=== PATIENT | female | born 1985 | race Caucasian/White ===

== ENCOUNTER 2018-07-08 22:05 | Emergency (ER) | payer MEDICAID, OTHER ==
[~2018-07-08] VITALS: Ht 165.1 cm; Wt 45.0 kg
[~2018-07-08 22:05] MED LIST: ALBU6.7H INH; ALBU8HFA PO; CLON-529 PO; CLON0.1T20 PO; DIPH25CA83 PO; FAMO-128 PO; GABA-532 PO; LOPE-144 PO; LOPE-155 PO; LOPE2TAB25 PO; ONDA4TAB12 PO; ONDA4TAB6 PO
[2018-07-08 22:17] VITALS: BP 154/93
[2018-07-08] MEDS ORDERED: CLIN300C54 PO (22:36)
== END 2018-07-08 22:43 | disposition home or self-care (01) ==
LOC: ER 22:06
DX: L73.9 Follicular disorder, unspecified (principal); F11.90 Opioid use, unspecified, uncomplicated; F10.20 Alcohol dependence, uncomplicated; Z86.19 Personal history of other infectious and parasitic diseases; Z56.0 Unemployment, unspecified; Z88.2 Allergy status to sulfonamides; Z79.2 Long term (current) use of antibiotics; Z79.899 Other long term (current) drug therapy; Y90.9 Presence of alcohol in blood, level not specified
CPT/HCPCS: 99283

== ENCOUNTER 2018-09-30 14:15 | Emergency (ER) | payer MEDICAID ==
[~2018-09-30] VITALS: Ht 165.1 cm; Wt 56.8 kg
[2018-09-30 14:24] VITALS: BP 105/67
[2018-09-30] MEDS ORDERED: LIDOcaine 1% 30ml preserv. free vial SQ STA (15:07)
[2018-09-30] MEDS ORDERED: TETanus/Pertussis (Acell)/Diphther VAC/PF (Tdap-Adult) 0.5ml syringe IMVAC ONE (15:10)
[2018-09-30] MEDS ORDERED: CLIN150C2 PO (15:24)
== END 2018-09-30 15:40 | disposition home or self-care (01) ==
LOC: ER 14:15
DX: L02.413 Cutaneous abscess of right upper limb (principal); F32.9 Major depressive disorder, single episode, unspecified; F11.10 Opioid abuse, uncomplicated; Z88.2 Allergy status to sulfonamides; Z79.899 Other long term (current) drug therapy; Z56.0 Unemployment, unspecified
CPT/HCPCS: 10060; 90471; 90715; 99284

== ENCOUNTER 2018-10-29 13:17 | Emergency (ER) | payer MEDICAID ==
[~2018-10-29] VITALS: Ht 165.1 cm; Wt 56.8 kg
[~2018-10-29 13:17] MED LIST changes: +CLIN150C2 PO
[2018-10-29 13:26] VITALS: BP 102/58
[2018-10-29] MEDS ORDERED: famotidine 10mg tablet PO STA (13:56)
[2018-10-29] MEDS ORDERED: ondansetron 4mg rapidly disintigrating tab PO ONE (14:00)
[2018-10-29] MEDS ORDERED: loperamide 2mg capsule PO ONE (14:00)
[2018-10-29] MEDS ORDERED: pantoprazole 40mg Tablet.DR PO SCH (14:25)
[2018-10-29] MEDS ORDERED: famotidine 20mg tablet PO ONE (14:55)
[2018-10-29] MEDS ORDERED: LOPE-155 PO (15:07)
[2018-10-29] MEDS ORDERED: ONDA4TAB6 PO (15:07)
[2018-10-29] MEDS ORDERED: PANT20TA3 PO (15:07)
== END 2018-10-29 15:31 | disposition home or self-care (01) ==
LOC: ER 13:18
DX: K52.9 Noninfective gastroenteritis and colitis, unspecified (principal); F11.10 Opioid abuse, uncomplicated; F32.9 Major depressive disorder, single episode, unspecified; Z88.2 Allergy status to sulfonamides; Z79.899 Other long term (current) drug therapy; Z56.0 Unemployment, unspecified
CPT/HCPCS: 99284

== ENCOUNTER 2019-03-16 19:49 | Emergency (ER) | payer MEDICAID ==
[~2019-03-16] VITALS: Ht 167.6 cm; Wt 56.8 kg
[~2019-03-16 19:49] MED LIST changes: -CLIN150C2 PO; +PANT20TA3 PO
[2019-03-16 19:52] VITALS: BP 117/80
== END 2019-03-16 21:19 | disposition home or self-care (01) ==
LOC: ER 19:49
DX: F11.90 Opioid use, unspecified, uncomplicated (principal); F17.200 Nicotine dependence, unspecified, uncomplicated; Z88.2 Allergy status to sulfonamides; Z79.899 Other long term (current) drug therapy; Z56.0 Unemployment, unspecified
CPT/HCPCS: 99284

== ENCOUNTER 2019-07-18 05:22 | Emergency (ER) | payer MEDICAID ==
[~2019-07-18] VITALS: Ht 165.1 cm; Wt 56.8 kg
[~2019-07-18 05:22] MED LIST changes: -ALBU6.7H INH; +ALBU6.7H9 INH; +CLON0.1T2 PO; -CLON0.1T20 PO; -LOPE-155 PO; +LOPE-190 PO
[2019-07-18] MEDS ORDERED: LORazepam 1 MG tablet PO ONE (05:25)
[2019-07-18] MEDS ORDERED: normal saline 1000ML IV soln IVB ONE ×2 (05:30→06:25)
[2019-07-18] MEDS ORDERED: LORazepam 2 mg/ml vial IV ONE ×2 (05:30→06:25)
--- NOTE | 2019-07-18 05:46 | NUR ---
PT GIVEN ATIVAN 1.5 MG IV AND 1 LITER NS BOLUS STARTED. CURRENT HR 127, ST.
--- NOTE | 2019-07-18 06:09 | NUR ---
[employer] Officer reports Pt will not be taken to [facility] now and he will release her. Dr. Good aware and ini to reevaluate Pt.
--- NOTE | 2019-07-18 06:16 | NUR ---
up to br , ambulating with steady gait
--- NOTE | 2019-07-18 07:10 | NUR ---
PT IS AWAKE MOVINIG AROUND IN BED NEW BAG OF FLUID GIVEN AND ATIVAN GIVEN NOW CALMING DOWN AND STARTING TO FALL ASLEEP
--- NOTE | 2019-07-18 07:31 | NUR ---
PT APPERS TO BE SLEEPING SHE IS CALM NOT MOVING AROUND RISE AND fall of chest noted
--- NOTE | 2019-07-18 08:28 | NUR ---
PT CONTINUES TO BE VERY DROWSEY AND SLEEPING SOUNDLY.
--- NOTE | 2019-07-18 09:05 | NUR ---
in bed resting vitals stable
[2019-07-18 09:48] VITALS: BP 107/66
== END 2019-07-18 10:06 | disposition home or self-care (01) ==
LOC: ER 05:23
DX: F11.10 Opioid abuse, uncomplicated (principal); F15.10 Other stimulant abuse, uncomplicated; F32.9 Major depressive disorder, single episode, unspecified; F12.90 Cannabis use, unspecified, uncomplicated; F17.200 Nicotine dependence, unspecified, uncomplicated; Z56.0 Unemployment, unspecified; Z88.2 Allergy status to sulfonamides; Z79.899 Other long term (current) drug therapy
CPT/HCPCS: 93005; 96374; 96376; 99283; J2060; J7030

== ENCOUNTER 2019-07-21 09:39 | Emergency (ER) | payer MEDICAID ==
[~2019-07-21] VITALS: Ht 165.1 cm; Wt 55.3 kg
[~2019-07-21 09:39] MED LIST changes: -CLON0.1T2 PO; +CLON0.1T20 PO
[2019-07-21 09:49] VITALS: BP 113/80
== END 2019-07-21 10:55 | disposition home or self-care (01) ==
LOC: ER 09:39
DX: F11.23 Opioid dependence with withdrawal (principal); F12.90 Cannabis use, unspecified, uncomplicated; F15.90 Other stimulant use, unspecified, uncomplicated; F32.9 Major depressive disorder, single episode, unspecified; F17.200 Nicotine dependence, unspecified, uncomplicated; F10.99 Alcohol use, unspecified with unspecified alcohol-induced disorder; Z86.19 Personal history of other infectious and parasitic diseases; Z56.0 Unemployment, unspecified; Z88.2 Allergy status to sulfonamides; Z79.899 Other long term (current) drug therapy; Y90.9 Presence of alcohol in blood, level not specified
CPT/HCPCS: 99281

== ENCOUNTER 2019-07-24 09:55 | Emergency (ER) | payer MEDICAID ==
[~2019-07-24] VITALS: Ht 165.1 cm; Wt 60.0 kg
[2019-07-24 10:02] VITALS: BP 105/65
--- NOTE | 2019-07-24 11:38 | NUR ---
pt leftthe fast track by informing mahendra grove keon that she is not going to be accepted by [facility] today and she has to come back again today and she lft without notification and seeing md.
== END 2019-07-24 11:30 | disposition left against medical advice (07) ==
LOC: ER 09:56
DX: Z02.89 Encounter for other administrative examinations (principal); Z53.21 Procedure and treatment not carried out due to patient leaving prior to being seen by health care provider; Z79.899 Other long term (current) drug therapy

== ENCOUNTER 2019-07-27 12:07 | Emergency (ER) | payer MEDICAID ==
[~2019-07-27] VITALS: Ht 165.1 cm; Wt 56.0 kg
[~2019-07-27 12:07] MED LIST changes: +CLON0.1T2 PO; -CLON0.1T20 PO
[2019-07-27 12:21] VITALS: BP 139/88
--- NOTE | 2019-07-27 12:55 | NUR ---
Pt has not medical complaints at this time, see evaluation by Provider.
== END 2019-07-27 13:11 | disposition home or self-care (01) ==
LOC: ER 12:07
DX: F15.90 Other stimulant use, unspecified, uncomplicated (principal); F11.90 Opioid use, unspecified, uncomplicated; F32.9 Major depressive disorder, single episode, unspecified; F12.90 Cannabis use, unspecified, uncomplicated; F17.210 Nicotine dependence, cigarettes, uncomplicated; Z56.0 Unemployment, unspecified; Z88.2 Allergy status to sulfonamides; Z79.899 Other long term (current) drug therapy
CPT/HCPCS: 99281

== ENCOUNTER 2019-07-28 08:57 | Emergency (ER) | payer MEDICAID ==
[~2019-07-28] VITALS: Ht 165.1 cm; Wt 53.0 kg
[~2019-07-28 08:57] MED LIST changes: -CLON0.1T2 PO; +CLON0.1T20 PO
[2019-07-28] MEDS ORDERED: buprenorphine/naloxone 8MG-2MG SUBlingual film SL STA (09:10)
[2019-07-28 09:22] VITALS: BP 126/78
== END 2019-07-28 09:49 | disposition home or self-care (01) ==
LOC: ER 08:58
DX: F11.23 Opioid dependence with withdrawal (principal); R09.81 Nasal congestion; F32.9 Major depressive disorder, single episode, unspecified; F17.200 Nicotine dependence, unspecified, uncomplicated; F15.90 Other stimulant use, unspecified, uncomplicated; F12.90 Cannabis use, unspecified, uncomplicated; F10.99 Alcohol use, unspecified with unspecified alcohol-induced disorder; Z86.19 Personal history of other infectious and parasitic diseases; Z88.2 Allergy status to sulfonamides; Z79.899 Other long term (current) drug therapy; Z56.0 Unemployment, unspecified; Y90.9 Presence of alcohol in blood, level not specified
CPT/HCPCS: 99282

== ENCOUNTER 2019-08-10 08:26 | Emergency (ER) | payer MEDICAID ==
[~2019-08-10] VITALS: Ht 165.1 cm; Wt 58.0 kg
[2019-08-10 08:48] VITALS: BP 119/79
[2019-08-10] MEDS ORDERED: PENI500T2 PO (10:14)
== END 2019-08-10 10:21 | disposition home or self-care (01) ==
LOC: ER 08:27
DX: K08.89 Other specified disorders of teeth and supporting structures (principal); R22.0 Localized swelling, mass and lump, head; F32.9 Major depressive disorder, single episode, unspecified; F17.210 Nicotine dependence, cigarettes, uncomplicated; F12.90 Cannabis use, unspecified, uncomplicated; F15.90 Other stimulant use, unspecified, uncomplicated; F11.90 Opioid use, unspecified, uncomplicated; Z88.2 Allergy status to sulfonamides; Z79.899 Other long term (current) drug therapy; Z79.2 Long term (current) use of antibiotics
CPT/HCPCS: 99283

== ENCOUNTER 2025-04-03 22:32 | Emergency (ER) | payer MEDICAID ==
[~2025-04-03] VITALS: Ht 165.1 cm; Wt 57.8 kg
[~2025-04-03 22:32] MED LIST changes: +ALBU6.7H14 INH; -ALBU6.7H9 INH; +CLON0.1T2 PO; -CLON0.1T20 PO; +ONDA-243 PO; -ONDA4TAB12 PO; +PANT20TA18 PO; -PANT20TA3 PO
--- NOTE | 2025-04-03 22:39 | Physician Documentation ---
History of Present Illness ~ Stated Complaint: HURT WRIST Time Seen by MD: 22:59 OK to notify your PCP?: Yes Primary Medical Doctor: [facility] Source: patient Mode of Arrival: POV Exam Limitations: no limitations HPI 31-year-old female presents with left ulnar wrist pain after falling on concrete while roller-skating and trying to catch herself with that on. She has good movement in her fingers, good CSM, good pulses just pain with movement and localized pain to palpation. Not taken any medications for pain prior to arrival. She denies any head strike or neck pain or thinners. Tetanus within 5 years: No Medication Reconciliation Allergies: Coded Allergies: Sulfa (Sulfonamide Antibiotics) (Verified Allergy, Intermediate, 04/03/25) Scheduled Albuterol Sulfate (Proventil Hfa), 2 PUFFS INH Q6H Clonidine HCl (Clonidine HCl), 1 TAB PO TID Clonidine Hcl* (Catapres*), 0.1 MG PO TID Diphenhydramine Hcl (Benadryl), 2 CAP PO HS Famotidine (Pepcid), 1 TAB PO Q12H Gabapentin (Gabapentin), 1 CAP PO QHS Loperamide HCl (Imodium A-D), 1 TAB PO QID Loperamide HCl (Imodium A-D), 2 TAB PO TID Ondansetron Hcl (Zofran), 1-2 TAB PO Q8H Ondansetron Hcl (Zofran), 1 TAB PO Q6H Ondansetron Hcl (Zofran), 1 TAB PO Q6H Pantoprazole Sodium (Protonix), 1 TAB PO DAILY Scheduled PRN Diphenhydramine Hcl (Benadryl), 1-2 CAP PO Q6H PRN PRN for nausea/vomiting Loperamide HCl (Imodium A-D), 1 CAP PO intially PRN for then 1 after each loose stool Loperamide Hcl (Loperamide), 1 TAB PO Q4H PRN for diarrhea ONDANSETRON ODT 4mg tablet (Ondansetron Odt), 4 MG PO Q6H PRN PRN for nausea/vomiting albuterol inhaler (Pro-Air Inhaler), 1-2 PUFFS PO Q4H PRN for SOB or wheezing Past Medical History Past Medical History: Hepatitis B, Depression Past Surgical History: noncontributory Alcohol Use: Alcoholic Drug Use: marijuana, methamphetamine, heroin Lives with: Family Lives In: Home Occupation: unemployed Review of Systems All Other Systems at this time: Reviewed and Negative Physical Exam Vital Signs: RN Vital Signs have been reviewed: Yes Pulse Oximetry Reflects: adequate oxygenation Physical Exam General: Alert, no distress. HEENT: No injection, moist mucous membranes. Neck: Full range of motion. Respiratory: No respiratory distress, equal chest rise and fall. Chest: No accessory muscle use. Cardiovascular: Regular rate and rhythm. Gastrointestinal: Nondistended. Extremities: Decreased range of motion in left wrist due to pain. Point tenderness to ulnar aspect of left wrist. CSM, normal pulses. normal sensation. Neurologic: Oriented x4. Psychiatric: Normal mood and affect. Skin: Normal color, warm and dry. Progress Results/Orders Reviewed/noted all lab results: Yes Results/Orders Orders - NATY BALDERRAMA [employer] TECHNICIAN Wrist, Complete (3vw Min) (04/03/25 22:50) Completed Orders - NATY BALDERRAMA [employer] TECHNICIAN Wrist, Complete (3vw Min) (04/03/25 22:50) Naproxen Tablet (Naprosyn Tablet) (04/03/25 22:40) Medications Received in ER Medications (Trade) Dose Ordered Sig/Kushla Route PRN Reason Start Time Stop Time Status Last Admin Dose Admin (Naprosyn tablet) 500 mg ONCE ONCE PO 04/03/25 22:40 04/03/25 22:41 DC 04/03/25 22:40 500 MG Vital Signs 04/03/25 22:35 Temp 97.2 Pulse 109 Resp 16 B/P (MAP) 153/99 Pulse Ox 100 O2 Flow Rate 0 EKG/XRAY/CT/US/VASC/MRI Bone/Soft Tissue X-Ray (Ext.) : Additional Comment Left wrist X-ray as interpreted by me; no joint effusion, no acute fracture, no soft tissue swelling, no dislocation, or foreign body. Medical Decision Making Findings 39-year-old female presents with left ulnar wrist pain that radiates into the hand after falling on out stretched hand when she fell while rollerblading. She has point tenderness to the ulnar aspect of her wrist, good range motion in the fingers, good CSM, normal sensation and good pulses. Wrist x-ray shows. We discussed that x-rays are not perfect and sometimes there maybe a small fracture that is not seen on the initial x-ray but is appreciated on a repeat x- ray in 7-10 days. For this reason we will do a soft Velcro splint to the left wrist and she should follow up with her primary care provider within the week. She can use Tylenol and/or ibuprofen for pain relief, she should do RICE therapy. She should return back here for any new or worsening symptoms. General Diff Dx:Considerations: Include: Fracture, Hematoma, Malunion, Neurovascular injury Departure Disposition: HOME / SELF CARE / HOMELESS Impression: Primary Impression: Wrist joint pain Condition: Stable Discharge Instructions: RICE Therapy for Routine Care of Injuries, [id number], Wrist Pain, Adult Additional Instructions: You can use Tylenol and/or ibuprofen for pain relief. As discussed x-rays are not perfect and as you do not have a fracture on the x-ray today does not mean that you do not have a tiny fracture that is appreciated on a repeat x-ray in 7- 10 days. If you continue having pain please get a repeat x-ray 3 your primary care, follow up with her primary care provider within the next week and return back here for any new or worsening symptoms. Referrals: NO PRIMARY CARE PROVIDER (PCP) Education Educated: Patient Educated regarding: diagnosis, treatment, prognosis, need for follow up Additional Comment Medical Screen Exam This patient recieved a medical screening examination. After reviewing the j luis mccain's medical complaints with presenting symptoms and performing an appropriate physical examination, it was determined that no immediate life- threatening emergency medical condition is present. This individual is also not a women having contractions. Signature Scribe Signature: . Attestation: Scribed for Naty Balderramap by Naty Serrano NP . 04/03/25 23:34 Parts of this note were created using Plei voice recognition software program. While efforts were made to correct any mistakes made by this voice recognition software program, nonsensical phrases may remain in this note. In addition, there may be errors and syntax, grammar, content and spelling. NATY BALDERRAMAP Apr 03, 2025 22:39
[2025-04-03] MEDS: naproxen 500mg tablet PO ONE (22:40)
--- NOTE | 2025-04-03 23:24 | RADIOLOGY REPORT ---
CLINICAL INDICATION: WRIST PAIN LEFT TECHNIQUE: DI WRIST, COMPLETE (3VW MIN) Comparison: None FINDINGS/IMPRESSION: : Tiny osseous density along the ulnar aspect of the triquetrum which could be age-indeterminate trauma . Otherwise no acute fracture. 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
[2025-04-03 23:44] VITALS: BP 150/92; PULSE 99; RESP 18; TEMP 98.6; O2SAT 99
== END 2025-04-03 23:46 | disposition home or self-care (01) ==
LOC: ER 22:32
DX: M25.532 Pain in left wrist (principal); F32.A Depression, unspecified; F12.90 Cannabis use, unspecified, uncomplicated; F15.90 Other stimulant use, unspecified, uncomplicated; F11.90 Opioid use, unspecified, uncomplicated; F10.90 Alcohol use, unspecified, uncomplicated; Z88.2 Allergy status to sulfonamides; Z88.8 Allergy status to other drugs, medicaments and biological substances; Y90.9 Presence of alcohol in blood, level not specified
CPT/HCPCS: 29125; 73110; 99283